=== PATIENT | female | born 1990 | race African-American/Black ===

== ENCOUNTER 2017-12-10 20:51 | Emergency (ER) | payer OTHER ==
[~2017-12-10] VITALS: Ht 154.9 cm; Wt 68.0 kg
[2017-12-11 05:05] LABS: HCG SCREEN NEGATIVE
[2017-12-11] MEDS ORDERED: METHOCARBAMOL 500MG TABLET PO ONE (06:15)
[2017-12-11] MEDS ORDERED: KETOROLAC 30MG/ML VIAL IM ONE (06:15)
[2017-12-11 07:05] VITALS: BP 115/79
== END 2017-12-11 07:05 | disposition home or self-care (01) ==
LOC: ER 20:51
DX: S16.1XXA Strain of muscle, fascia and tendon at neck level, initial encounter (principal); F79 Unspecified intellectual disabilities; J45.909 Unspecified asthma, uncomplicated; Z88.0 Allergy status to penicillin; X58.XXXA Exposure to other specified factors, initial encounter; Y93.89 Activity, other specified; Y92.89 Other specified places as the place of occurrence of the external cause; Y99.8 Other external cause status
CPT/HCPCS: 72125; 84703; 96372; 99285; J1885; Z7610